=== PATIENT | female | born 1990 | race Hispanic/Latino ===

== ENCOUNTER 2016-10-05 17:49 | Emergency (ER) | payer MEDICAID ==
[~2016-10-05] VITALS: Ht 154.9 cm; Wt 65.5 kg
[~2016-10-05 17:49] MED LIST: PREN-20 PO
[2016-10-05 17:56] VITALS: BP 110/68; PULSE 105; RESP 20; O2SAT 98
== END 2016-10-05 19:13 | disposition left against medical advice (07) ==
LOC: SED 18:16
DX: Z53.21 Procedure and treatment not carried out due to patient leaving prior to being seen by health care provider (principal)

== ENCOUNTER 2016-10-16 01:39 | Inpatient (IN) | payer MEDICAID ==
[~2016-10-16] VITALS: Ht 154.9 cm; Wt 67.6 kg
[2016-10-16] MEDS ORDERED: Lactated Ringer's 1,000 ML IV PRN (02:21)
[2016-10-16] MEDS ORDERED: Oxytocin 10 Unit/mL Inj IM PRN ×2 (02:25→03:30)
[2016-10-16] MEDS ORDERED: Carboprost 250 mCg/mL Inj IM PRN ×2 (02:25→03:30)
[2016-10-16] MEDS ORDERED: Ondansetron 2 mg/mL 2 mL Inj IVPUSH PRN (02:25)
[2016-10-16] MEDS ORDERED: fentaNYL-PF 50 mCg/mL 2 mL Inj IVPUSH PRN (02:25)
[2016-10-16] MEDS ORDERED: Oxytocin 30 Units/500 mL LR 30 UNITS in IV Premix 1 EACH IV PRN ×2 (02:25→03:30)
[2016-10-16] MEDS ORDERED: Hemorrhage Kit, Post Partum XX ONE ×2 (02:25→03:30)
[2016-10-16] MEDS ORDERED: Methylergonovine 0.2 mg/mL Inj IM PRN ×2 (02:25→03:30)
[2016-10-16] MEDS ORDERED: Sodium Chloride LOK Flush 10 mL Syringe IVFLUSH PRN (02:25)
[2016-10-16 02:37] LABS: Mean Corpuscular Hemoglobin 24.2 pg (27.0-35.0); Mean Corpuscular Volume 75.4 fL (81-100)
[2016-10-16] MEDS ORDERED: Lactated Ringer's 1,000 ML IV SCH (03:29)
[2016-10-16] MEDS ORDERED: Witch Hazel-Glycerin Pads TOPICAL PRN (03:30)
[2016-10-16] MEDS ORDERED: LANOlin HPA 7 Gm Ointment TOPICAL PRN (03:30)
[2016-10-16] MEDS ORDERED: HYDROcodone-APAP 5-325 mg Tablet PO PRN (03:30)
[2016-10-16] MEDS ORDERED: Benzocaine (Dermoplast) 20% 60 Gm Spray TOPICAL PRN (03:30)
--- NOTE | 2016-10-16 14:20 | NUR ---
Social Work Note: Referral Received. Florencia Ortega, PEDRO, AAC
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
--- NOTE | 2016-10-16 17:11 | PCM.PNOBPP ---
Subjective Date of Service Oct 16, 2016 Post : Spontaneous Vaginal Delivery Subjective 26 yo G3 P [address] [facility] early the morning of Oct 16 2016 in labor. She was found to be complete at 03:14 and delivered via at 03:16. She reports doing well this morning with some mild pain. She has no questions or concerns at the time. Lochia: Normal Pain Management: PO pain meds Gastrointestinal: No N/V Group B Strep Results: Negative Rubella: Immune Blood Type: O RH Type: Positive Labs Laboratory Tests 10/16/16 02:25: White Blood Count 9.6, Red Blood Count 4.43, Hemoglobin 10.7, Hematocrit 33.4, Mean Corpuscular Volume 75.4, Mean Corpuscular Hemoglobin 24.2, Mean Corpuscular Hemoglobin Concent 32.0, Red Cell Distribution Width 15.4, Platelet Count 372 Exam Vital Signs Vital Signs: VS reviewed, stable Exam Abdomen: Fundus firm, Abdomen soft Extremities: Edema 1+ Lungs: Clear to Auscultation, Normal Air Movement Heart: Regular Rate/Rhythm, No Murmurs/Rubs/Gallops General: Alert, Oriented X3 OB Post Assessment/Plan Assessment 26 yo G3 now P 2103 presented in active labor which progressed quickly and delivered via spontaneous vaginal delivery. Patient doing well . Problems: (1) Spontaneous vaginal delivery Plan: Supportive care Onset Date: 07/12/2015 Status: Acute ICD Code: O80 (2) Qualifiers: Weeks of gestation: 39 weeks Qualified Code: Z3A.39 - 39 weeks gestation of Onset Date: 07/12/2015 Status: Resolved ICD Code: Z33.1 (3) Maternal varicella, non-immune Plan: Varicella vaccine at clinic visit Status: Acute ICD Code: O09.899 Pain Evaluation: Adequate Pain Control Post plan: Continue routine post care, Discharge home tomorrow Attending Statement The patient was seen and examined together with Dr. Florentino Carmona DO on 10/16/2016 and I agree with the history, exam and plan as outlined in the note above. FLORENTINO CARMONA DO Oct 16, 2016 17:11 Nimesh Merchant MD Oct 31, 2016 07:54
[2016-10-17 07:50] LABS: Mean Corpuscular Hemoglobin 24.1 pg (27.0-35.0); Mean Corpuscular Volume 77.7 fL (81-100)
[2016-10-17] MEDS ORDERED: IBUP-1827 PO (08:09)
[2016-10-17] MEDS ORDERED: DOCU-41 PO (08:09)
--- NOTE | 2016-10-17 08:37 | PCM.PNOBPP ---
Subjective Date of Service Oct 17, 2016 Post : Spontaneous Vaginal Delivery Subjective 26 yo G3 P 1102 delivered via early yesterday morning. She is doing well, ambulating on her own, breast feeding well. She has no concerns or questions. Lochia: Normal Pain Management: PO pain meds Gastrointestinal: No N/V Postop Activity: Ambulating Independently Group B Strep Results: Negative Rubella: Immune Blood Type: O RH Type: Positive Labs Laboratory Tests 10/17/16 07:25: Exam Vital Signs Vital Signs: VS reviewed, stable Exam Abdomen: Fundus firm : Voiding without difficulty Extremities: No tenderness/swelling, No edema Lungs: Clear to Auscultation, Normal Air Movement Heart: Regular Rate/Rhythm, No Murmurs/Rubs/Gallops General: Alert, Oriented X3 OB Post Assessment/Plan Assessment 26 yo G3 now P3 delivered via is doing well and meeting goals. Problems: (1) Spontaneous vaginal delivery Plan: Supportive care Onset Date: 07/12/2015 Status: Acute ICD Code: O80 (2) Qualifiers: Weeks of gestation: 39 weeks Qualified Code: Z3A.39 - 39 weeks gestation of Onset Date: 07/12/2015 Status: Resolved ICD Code: Z33.1 (3) Maternal varicella, non-immune Plan: Varicella vaccine at clinic visit Status: Acute ICD Code: O09.899 Pain Evaluation: Adequate Pain Control Post plan: Continue routine post care, Anticipate discharge home today Attending Statement The patient was seen and examined and I agree with the history, exam and plan as outlined in the note above. FLORENTINO CARMONA DO Oct 17, 2016 08:37 Heidy Jerez MD Oct 18, 2016 22:36
--- NOTE | 2016-10-17 08:43 | PCM.DIOB ---
Obstetrical Disch Instruction Date of Service: Oct 17, 2016 Dates of Hospitalization Date of Hospital Admission Oct 16, 2016 at 02:05 Providers Admitting Physician: Guillermo Bay MD Primary Care Physician: Nopjaskaran Attending Physician: Guillermo Bay MD Discharge Diagnosis Discharge Diagnosis 1. Normal spontaneous vaginal delivery 2. Varicella nonimmune Post Operative diagnosis 1. Normal spontaneous vaginal delivery Problems: (1) Spontaneous vaginal delivery Plan: Supportive care Onset Date: 07/12/2015 Status: Acute ICD Code: O80 (2) Qualifiers: Weeks of gestation: 39 weeks Qualified Code: Z3A.39 - 39 weeks gestation of Onset Date: 07/12/2015 Status: Resolved ICD Code: Z33.1 (3) Maternal varicella, non-immune Plan: Varicella vaccine at clinic visit Status: Acute ICD Code: O09.899 Diet Discharge Diet: No restrictions Activity Discharge Activity-General: Pelvic Rest for 6 weeks, Balance rest and activity Dressing and Incisional Care Hygiene: May shower Additional Instructions Discharge Instructions Continue to take your vitamin. You may take ibuprofen to help with pain, a prescription has been given. You may have some constipation so you have also been given a prescription for docusate to keep you regular. Be sure to follow up in 6 weeks at [facility]. At that time you will need a varicella vaccine. Pelvic rest for 6 weeks (nothing per vagina including intercourse, tampons) If you have a fever greater than 100.4, please call [facility]. There is always someone information clerk brokerage to talk to. If you have an increase in bleeding, call [facility]. If you have a lot of bleeding suddenly, especially if you have symptoms of dizziness & weakness with it, get emergency help. When you see [facility] in two weeks, you will be informed of the results of all the labs. If you start experiencing extreme depression, especially if you feel that you are a danger to yourself or your family, seek emergency help. You have been through a lot -- BE SURE TO TAKE CARE OF YOURSELF. Follow Up Plan Follow-up Provider (F9): Guillermo Bay MD Follow-up appointment: Weeks (6) Call your provider for: Fever or Chills, Shortness of breath, Heavy vaginal bleeding, Excessive constipation, Vaginal discomfort FLORENTINO CARMONA DO Oct 17, 2016 08:43
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
--- NOTE | 2016-10-17 09:09 | HP ---
[address] [address] HISTORY AND PHYSICAL PATIENT: ERICA SANDOVAL : 1990 MR#: [id number] ADMIT: 10/16/2016 JOB ID: [id number] HISTORY OF PRESENT ILLNESS: The patient is a 26-year-old, 3, para 2, at 39 weeks of gestation with estimated due date October 23, 2016. Comes to labor and delivery with complaint of contractions that started around midnight. The patient is chet every 3 minutes. She denies any vaginal bleeding, spotting, or abnormal vaginal discharge. The patient has a history of precipitous labor with her prior vaginal delivery. heart rate is reactive, category 1 tracing, baseline 140 beats per minute. ALLERGIES: NKDA. FAMILY HISTORY: Noncontributory. SOCIAL HISTORY: Patient denies smoking, alcohol, illicit recreational drug use. CARE: uncomplicated. She declined flu vaccination, and had recent onset of influenza two weeks prior to delivery. PHYSICAL EXAMINATION: Vital signs: Temperature 36.7, respiratory rate 18, pulse 86, blood pressure 100/68. HEENT: PERRLA. Chest: Clear bilaterally. No adventitious sounds. Cardiovascular system: Regular rate and rhythm. Abdomen is gravid. Fundal height corresponding to gestational age, mildly tender during contractions. Vaginal exam: The patient is 4-5 cm dilated, 80% effaced, -1 station, cephalic presentation, intact membranes. Extremities: No pitting edema. LABORATORIES: Reviewed. She is blood group and type O-positive, group B strep negative, rubella immune, varicella nonimmune. ASSESSMENT AND PLAN: The patient is a 26-year-old, 3, para 2, who presents to labor and delivery with regular contractions, in active labor. The patient has a history of precipitous delivery. She is being admitted to the [facility]. The labs were reviewed. She declines epidural at this point, pain management will be provided with fentanyl. IV hydration started with lactated Ringer at 125 mL/h. Labs were sent. Continuous monitoring shows normal reassuring heart rate, category 1 tracing.
--- NOTE | 2016-10-17 09:11 | OP ---
[address] [address] OPERATIVE REPORT PATIENT: ERICA SANDOVAL : 1990 MR#: [id number] ADMIT: 10/16/2016 JOB ID: [id number] DATE OF SURGERY: 10/16/2016 SURGEON: Guillermo Bay MD PREOPERATIVE DIAGNOSIS(ES): A 26-year-old 3, para 2 at 39 weeks in active labor. POSTOPERATIVE DIAGNOSIS(ES): A 26-year-old 3, para 3, status post spontaneous vaginal delivery and precipitous labor. DELIVERY NOTE: The patient is a 26-year-old 3, para 3 now, who came to Labor and Delivery at 2 o'clock in the morning with complaint of contractions. She has a history of a precipitous labor with her second . The patient was examined. She was 4-5 cm dilated, 80% effaced, bulging membranes, station -1. She was admitted for delivery. She progressed to full dilation at 3 a.m. She had spontaneous rupture of membranes. She started pushing at 3:10 a.m. and 6 minutes later she underwent spontaneous vaginal delivery, delivered male with Apgars 9 at one minute and 9 at five minutes. Weight 3211 g. Blade cold cord clamping was done. The was handed off to the waiting dramatic critic. The patient has not had any lacerations. The placenta was delivered three minutes later at 3:19 a.m., was found to be intact with three-vessel cord. Pitocin was started shortly after delivery of the . The weight of the was 3211 g. Estimated blood loss 200 mL. It was uncomplicated precipitous vaginal delivery.
[2016-10-17 17:21] VITALS: BP 90/55; PULSE 73; RESP 16
== END 2016-10-17 18:18 | disposition home or self-care (01) | DRG 560 ==
LOC: FBCO 01:39 → FBC 02:05
PROVIDERS: ADMIT Legal Medicine; ATTEND Legal Medicine
PROC: 10E0XZZ Delivery of Products of Conception, External Approach (ICD-10-PCS; principal; 2016-10-17)
DX: O62.3 Precipitate labor (principal); Z3A.39 39 weeks gestation of pregnancy; Z37.0 Single live birth